=== PATIENT | male | born 1975 | race Two or more races ===

== ENCOUNTER 2025-02-10 20:12 | Inpatient (IN) | payer OTHER ==
[~2025-02-10] VITALS: Ht 165.1 cm; Wt 99.8 kg
[2025-02-10] MEDS ORDERED: PANTOPRAZOLE 40 MG VIAL ONE (21:07)
[2025-02-10] MEDS ORDERED: ACETAMINOPHEN 325 MG TABLET ONE (21:07)
[2025-02-10] MEDS ORDERED: FAMOTIDINE/PF INJ 20 MG/2 ML VIAL IV ONE (21:07)
[2025-02-10 21:08] LABS: PLATELET COUNT (AUTO) 185 K/uL (150-450); RED BLOOD CELL COUNT(AUTO) 4.10 MIL/uL (4.5-6.0); RED CELL DISTRIBUTION WIDTH 13.8 % (11.5-15.0); WHITE BLOOD COUNT (AUTO) 9.5 K/uL (4.3-11.0)
[2025-02-10] MEDS: IV NS 0.9% 1,000 ML BAG IV ONE (21:14)
[2025-02-10] MEDS: ACETAMINOPHEN 325 MG TABLET PO ONE (21:15)
[2025-02-10 21:20] LABS: CALCIUM, SERUM 7.9 mg/dL (8.5-10.1); CREATININE 1.2 mg/dL (0.6-1.3); SODIUM SERUM 134 mmol/L (136-145); UREA NITROGEN, BLOOD 28 mg/dL (7-18)
[2025-02-10] MEDS: FAMOTIDINE/PF INJ 20 MG/2 ML VIAL IV ONE (21:26)
[2025-02-10] MEDS: PANTOPRAZOLE 40 MG VIAL IV ONE (21:26)
[2025-02-10 21:30] LABS: NT-PRO BNP 37 pg/mL (0-125)
[2025-02-10 22:32] LABS: SITE, VBG LEFT RADIAL; VBG BASE EXCESS -11.2 mmol/L (-2.0-3.0); VBG HCO3 13.6 mmol/L (22.0-29.0); VBG MetHb 0.3 % (0.5-1.5); VBG OXYGEN SATURATION 94.5 % (60.0-85.0); VBG PCO2 28.0 mmHg (38.0-54.0); VBG PH 7.305 (7.320-7.430); VBG PO2 83.4 mmHg (23.0-48.0); VBG TOTAL HEMOGLOBIN 12.6 G/dL (13.5-17.5)
[2025-02-10] MEDS ORDERED: INSULIN REGULAR, HUMAN 100 UNIT/ML 10 ML VIAL ONE (22:42)
[2025-02-10] MEDS: INSULIN REGULAR, HUMAN 100 UNIT/ML 10 ML VIAL SQ ONE (22:52)
[2025-02-10] MEDS ORDERED: ATOR80TA PO (23:20)
[2025-02-10] MEDS ORDERED: ATOR10TA PO (23:20)
[2025-02-10] MEDS ORDERED: ASPI-1420 PO (23:20)
[2025-02-10] MEDS ORDERED: BENA20TA9 PO (23:20)
[2025-02-10] MEDS ORDERED: METF-881 PO (23:20)
[2025-02-10] MEDS: ASPIRIN 325 MG TABLET PO SCH (23:36)
[2025-02-11] MEDS ORDERED: Z GUARD REMEDY 4 OZ OINT TP PRN (00:30)
[2025-02-11] MEDS ORDERED: ONDANSETRON HCL/PF 4 MG/2 ML VIAL IVP PRN (00:30)
[2025-02-11] MEDS ORDERED: ACETAMINOPHEN 325 MG TABLET PO PRN (00:30)
[2025-02-11] MEDS ORDERED: MAG HYDROX/AL HYDROX/SIMETH 30 ML UDC PO PRN (00:30)
[2025-02-11] MEDS ORDERED: ZOLPIDEM TARTRATE 5 MG TABLET PO PRN (00:30)
[2025-02-11] MEDS ORDERED: MAGNESIUM HYDROXIDE 30 ML UDC PO PRN (00:30)
[2025-02-11 00:32] VITALS: BP 149/74; TEMP 98.6; O2SAT 95
[2025-02-11] MEDS: IV NS 0.9% 1,000 ML IV SCH (00:46)
[2025-02-11] MEDS ORDERED: DEXTROSE 50%-WATER 50 ML DISP.SYRIN IV PRN (03:00)
[2025-02-11] MEDS: BLOOD SUGAR DIAGNOSTIC 1 EACH STRIP IN SCH (04:36)
[2025-02-11] MEDS: INSULIN REGULAR, HUMAN 100 UNIT/ML 3 ML VIAL SQ PRN (04:36)
[2025-02-11 05:54] LABS: ABG BASE EXCESS -2.4 mmol/L (-2.0-3.0); ABG OXYGEN SATURATION 96.9 % (94.0-98.0); ABG PCO2 32.1 mmHg (35.0-48.0); ABG PH 7.432 (7.350-7.450); ABG PO2 98.7 mmHg (83.0-108.0); ABG TOTAL HEMOGLOBIN 13.5 G/dL (13.5-17.5); SITE, ABG RIGHT BRACHIAL
[2025-02-11 06:58] LABS: APPEARANCE,URINE CLEAR (CLEAR); BLOOD, URINE NEGATIVE Ery/uL (NEGATIVE); LEUKOCYTE ESTERASE ,URINE NEGATIVE (NEGATIVE); NITRITE, URINE NEGATIVE (NEGATIVE); UGLUCOSE 3+ mg/dL (NEGATIVE)
[2025-02-11 07:33] LABS: ADD URINE CULTURE NO; SQUAMOUS EPITHELIAL CELL,UR Rare /HPF (None Seen)
[2025-02-11] MEDS: PANTOPRAZOLE 40 MG TABLET.DR PO SCH (07:37)
[2025-02-11 07:51] LABS: PLATELET COUNT (AUTO) 191 K/uL (150-450); RED BLOOD CELL COUNT(AUTO) 4.34 MIL/uL (4.5-6.0); RED CELL DISTRIBUTION WIDTH 14.0 % (11.5-15.0); WHITE BLOOD COUNT (AUTO) 8.8 K/uL (4.3-11.0)
[2025-02-11 08:00] VITALS: BP 142/68; TEMP 98.1; O2SAT 96
[2025-02-11] MEDS: ATORVASTATIN 10 MG TABLET PO SCH (08:19)
[2025-02-11] MEDS: BENAZEPRIL HCL 20 MG TABLET PO SCH (08:19)
[2025-02-11] MEDS: HEPARIN SODIUM, PORCINE 5000 UNITS/1 ML VIAL SQ SCH (08:20)
[2025-02-11 08:30] LABS: CALCIUM, SERUM 8.1 mg/dL (8.5-10.1); CREATININE 1.0 mg/dL (0.6-1.3); PHOSPHORUS 3.6 mg/dL (2.5-4.9); SODIUM SERUM 139.0 mmol/L (136-145); UREA NITROGEN, BLOOD 18.0 mg/dL (7-18)
[2025-02-11 09:54] LABS: LDL 85.0 mg/dL (0-99)
[2025-02-11] MEDS: MAGNESIUM OXIDE 400 MG TABLET PO ONE (10:04)
[2025-02-11] MEDS: IV NS 0.9% 1,000 ML IV PRN (13:12)
[2025-02-11 16:00] VITALS: BP 151/76; TEMP 97.3; O2SAT 97
[2025-02-11] MEDS: METOPROLOL SUCCINATE 50 MG TAB.SR.24H PO ONE (16:11)
[2025-02-11] MEDS ORDERED: IOHEXOL-350 100 ML VIAL IV ONE (17:17)
[2025-02-11] MEDS ORDERED: IV NS 0.9% 250 ML IV ONE (17:17)
[2025-02-11] MEDS: METOPROLOL TARTRATE INJ 5 MG/5 ML AMPUL IVP PRN (17:35)
[2025-02-11] MEDS ORDERED: METOPROLOL TARTRATE INJ 5 MG/5 ML AMPUL ONE (17:37)
[2025-02-11] MEDS: NITROGLYCERIN 0.4 MG/TAB BOTTLE SL ONE (17:43)
[2025-02-11] MEDS ORDERED: NITROGLYCERIN 0.4 MG/TAB BOTTLE ONE (17:52)
[2025-02-11 20:00] VITALS: BP 128/77; TEMP 97.7; O2SAT 95
[2025-02-12] VITALS: BP 125/60; TEMP 97.9; O2SAT 97
[2025-02-12 04:00] VITALS: BP 125/75; TEMP 98.1; O2SAT 96
[2025-02-12 08:00] VITALS: BP 134/69; TEMP 97.3; O2SAT 97
[2025-02-12 12:00] VITALS: BP 129/71; TEMP 97.5; O2SAT 96
[2025-02-12 16:00] VITALS: BP 135/77; TEMP 97.9; O2SAT 97
[2025-02-12 20:00] VITALS: BP_SYST 104; BP_SYST 134; BP_DIAS 67; BP_DIAS 81; TEMP 98.2; O2SAT 95
[2025-02-13 04:00] VITALS: BP 119/75; TEMP 97.3; O2SAT 97
[2025-02-13 08:00] VITALS: BP 134/74; TEMP 97.2; O2SAT 96
[2025-02-13 16:00] VITALS: BP 116/72; TEMP 97.9; O2SAT 98
[2025-02-13 20:00] VITALS: BP 117/70; TEMP 97.9; O2SAT 95
[2025-02-14] VITALS (8 sets, daily range): BP systolic 105–132; BP diastolic 70–82; TEMP 97.5–98.4; O2SAT 96–98
[2025-02-15] VITALS: BP 137/65; TEMP 98.1; O2SAT 97
[2025-02-15 04:59] VITALS: BP 147/80; TEMP 97.3; O2SAT 97
[2025-02-15 07:18] LABS: ASPARTATE AMINOTRANSFERASE 26.0 U/L (15-37); CALCIUM, SERUM 9.1 mg/dL (8.5-10.1); CREATININE 0.9 mg/dL (0.6-1.3); SODIUM SERUM 136.0 mmol/L (136-145); TOTAL PROTEIN, SERUM 7.4 g/dL (6.4-8.2); UREA NITROGEN, BLOOD 18.0 mg/dL (7-18)
[2025-02-15 08:45] VITALS: BP_SYST 106; BP_SYST 135; BP_DIAS 76; BP_DIAS 80; TEMP 97.8; TEMP 98; O2SAT 97
== END 2025-02-15 10:30 | disposition short-term general hospital (02) | DRG 198 ==
LOC: ER 20:16 → TELE 23:16
PROVIDERS: ADMIT Registered Nurse Psychiatric/Mental Health
DX: I25.110 Atherosclerotic heart disease of native coronary artery with unstable angina pectoris (principal); E87.20 Acidosis, unspecified; E83.51 Hypocalcemia; E11.65 Type 2 diabetes mellitus with hyperglycemia; D64.9 Anemia, unspecified; E66.9 Obesity, unspecified; E78.5 Hyperlipidemia, unspecified; I10 Essential (primary) hypertension; Z79.4 Long term (current) use of insulin; Z98.890 Other specified postprocedural states; Z87.19 Personal history of other diseases of the digestive system; R79.89 Other specified abnormal findings of blood chemistry; Z68.36 Body mass index [BMI] 36.0-36.9, adult; Z95.5 Presence of coronary angioplasty implant and graft
CPT/HCPCS: 36415; 36600; 71045-TC; 75574; 80048-TC; 80053-TC; 80061-TC; 81001; 82010-TC; 82803-TC; 82962-TC; 83735-TC; 83880; 84100-TC; 84484-TC; 85025-TC; 85378-TC; 93307-TC; A4223; G0378; G0480; J1308; J1644; J1815; J2470; J3490; J7030; J7050; Q9967

== ENCOUNTER 2025-04-05 23:05 | Emergency (ER) | payer OTHER ==
[~2025-04-05] VITALS: Ht 165.1 cm; Wt 102.1 kg
[~2025-04-05 23:05] MED LIST: ASPI-1420 PO; ATOR10TA PO; ATOR80TA PO; BENA20TA9 PO; METF-881 PO
[2025-04-06] MEDS ORDERED: ONDANSETRON HCL/PF 4 MG/2 ML VIAL ONE (00:31)
[2025-04-06] MEDS ORDERED: LOPERAMIDE HCL (2 MG CAP) 2 MG CAPSULE ONE (00:31)
[2025-04-06] MEDS: IV NS 0.9% 1,000 ML BAG IV ONE (00:36)
[2025-04-06] MEDS: ONDANSETRON HCL/PF 4 MG/2 ML VIAL IVP ONE (00:36)
[2025-04-06] MEDS: LOPERAMIDE HCL (2 MG CAP) 2 MG CAPSULE PO ONE (00:36)
[2025-04-06 00:41] LABS: PLATELET COUNT (AUTO) 219 K/uL (150-450); RED BLOOD CELL COUNT(AUTO) 4.06 MIL/uL (4.5-6.0); RED CELL DISTRIBUTION WIDTH 13.5 % (11.5-15.0); WHITE BLOOD COUNT (AUTO) 5.9 K/uL (4.3-11.0)
[2025-04-06 00:48] LABS: CALCIUM, SERUM 9.1 mg/dL (8.5-10.1); CREATININE 1.4 mg/dL (0.6-1.3); SODIUM SERUM 136.0 mmol/L (136-145); UREA NITROGEN, BLOOD 20.0 mg/dL (7-18)
[2025-04-06 00:54] LABS: ASPARTATE AMINOTRANSFERASE 10.0 U/L (15-37); TOTAL PROTEIN, SERUM 8.0 g/dL (6.4-8.2)
[2025-04-06 01:31] LABS: NEUTROPHILS % (MANUAL) 42 (42-76)
[2025-04-06 01:34] LABS: EOSINOPHILS % (MANUAL) 3 % (0-4); LYMPHOCYTES % (MANUAL) 37 % (16-48); MONOCYTES % (MANUAL) 18 % (0-11.0); PLATELET ESTIMATE ADEQUATE
[2025-04-06] MEDS ORDERED: ONDA4TAB11 PO (02:21)
[2025-04-06] MEDS ORDERED: LOPE2CAP PO (02:21)
[2025-04-06] MEDS ORDERED: FAMO20TA80 PO (02:21)
[2025-04-06 02:32] VITALS: BP 142/72; TEMP 98.8; O2SAT 96
== END 2025-04-06 02:32 | disposition home or self-care (01) ==
LOC: ER 23:11
DX: R11.2 Nausea with vomiting, unspecified (principal); R19.7 Diarrhea, unspecified; I10 Essential (primary) hypertension; E11.9 Type 2 diabetes mellitus without complications; K29.70 Gastritis, unspecified, without bleeding; Z79.82 Long term (current) use of aspirin; Z79.84 Long term (current) use of oral hypoglycemic drugs; Z79.899 Other long term (current) drug therapy
CPT/HCPCS: 99283; 96374; 96361; 85027; 80048; 83690; 80076; 85007; 36415; J2405; J7030